=== PATIENT | male | born 1955 | race Two or more races ===

== ENCOUNTER 2023-02-11 08:15 | Day surgery (SDC) | payer MEDICARE, BC ==
[~2023-02-11] VITALS: Ht 190.5 cm; Wt 101.4 kg
[~2023-02-11 08:15] MED LIST: CALCAVITD PO; CHOL10002 PO; CIPR500 PO; CYCLOPHOSPHAMID50 MG PO; FAMO20 PO; FURO20; Flomax0.4 MG PO; HYDACE5 PO; LEVO750 PO; METR500 PO; NYST100000 PO; POTCIT5 PO; PRED20 PO; PROM25 PO; Percocet 5-3251 EACH PO; RAMI2.5 PO; TAMS.4ER PO; UROCIT K PO; XARELTO15 MG PO
[2023-02-11] MEDS ORDERED: PROBIOTIC1 EA14 (09:00)
[2023-02-11] MEDS ORDERED: ZINC15 (09:01)
[2023-02-11 11:11] VITALS: BP 104/64
== END 2023-02-11 11:01 | disposition home or self-care (01) ==
LOC: ORSCSDS 08:15
PROVIDERS: Surgery
PROC: 0DJD8ZZ Inspection of Lower Intestinal Tract, Via Natural or Artificial Opening Endoscopic (ICD-10-PCS; principal; 2023-02-11 10:00)
DX: Z12.11 Encounter for screening for malignant neoplasm of colon (principal); K57.30 Diverticulosis of large intestine without perforation or abscess without bleeding; J45.909 Unspecified asthma, uncomplicated; Z86.718 Personal history of other venous thrombosis and embolism; Z86.711 Personal history of pulmonary embolism
CPT/HCPCS: J2704; J7120

== ENCOUNTER 2023-02-14 15:24 | Inpatient (IN) | payer MEDICARE, BC ==
[~2023-02-14] VITALS: Ht 190.5 cm; Wt 102.6 kg
[2023-02-14] VITALS (8 sets, daily range): BP systolic 96–120; BP diastolic 65–89
[~2023-02-14 15:24] MED LIST changes: +PROBIOTIC1 EA14; +ZINC15
[2023-02-14 16:13] LABS: BASOPHILS ABSOLUTE AUTO 0.06 K/mm3 (0.00-0.23); BASOPHILS PERCENT AUTO 1 % (0-2); EOSINOPHILS ABSOLUTE AUTO 0.02 K/mm3 (0.00-0.68); EOSINOPHILS PERCENT AUTO 0 % (0-6); Hematocrit 44.4 % (37.0-53.0); Hemoglobin 15.3 g/dL (13.5-17.5); IMMATURE GRAN ABSOLUTE AUTO 0.03 K/mm3 (0.00-0.10); IMMATURE GRAN PERCENT AUTO 0 % (0-1); LYMPHOCYTES PERCENT AUTO 16 % (21-46); MONOCYTES ABSOLUTE AUTO 0.56 K/mm3 (0.16-1.47); MONOCYTES PERCENT AUTO 7 % (4-13); Mean Corpuscular HGB 31.7 pg (26.0-34.0); Mean Corpuscular HGB Conc 34.5 g/dL (31.5-36.5); Mean Corpuscular Volume 92 fL (80-100); Mean Platelet Volume 10.3 fL (9.1-12.4); NEUTROPHILS ABSOLUTE AUTO 5.78 K/mm3 (1.96-9.15); NEUTROPHILS PERCENT AUTO 76 % (41-73); Platelet Count 248 K/mm3 (150-400); RDW Coefficient Variation 12.8 % (11.7-14.2); RDW Standard Deviation 43.1 fL (35.1-46.3); Red Blood Cell Count 4.82 M/mm3 (4.30-5.90); White Blood Cell Count 7.65 K/mm3 (4.00-11.30)
[2023-02-14 16:28] LABS: Albumin, Blood 3.5 g/dL (3.4-5.0); Albumin/Globulin Ratio 1.1 (0.8-1.8); Bilirubin, Total 0.6 mg/dL (0.1-1.0); Bun/Creatinine Ratio 12.5 (12.0-20.0); Calcium, Blood 9.1 mg/dL (8.5-10.1); Creatinine, Blood 1.04 mg/dL (0.60-1.20); Globulin, Blood 3.2 g/dL (2.2-4.0); Potassium, Blood 4.3 mmol/L (3.5-5.5); Total Protein, Blood 6.7 g/dL (6.4-8.2)
[2023-02-14 17:19] LABS: Thyroid Stimulating Hormone 1.75 uIU/mL (0.360-4.800)
[2023-02-14 20:09] LABS: Magnesium, Blood 2.2 mg/dL (1.6-2.4)
[2023-02-15] VITALS (28 sets, daily range): BP systolic 98–147; BP diastolic 53–99
--- NOTE | 2023-02-15 00:09 | NUR ---
ASSUMED PT CARE FORM RN IN ED. A&OX4. ABLE TO FOLLOW DIRECTIONS AND ANSWER QUESTIONS APPROPRIATELY. ABLE TO STAND AND TRANSFER TO BED FROM [facility] WITHOUT DIZZIENESS/LIGHTHEADEDNESS. DENIES CHEST PAIN/PRESSURE AT THIS TIME. HR A-FLUTTER IN 110'S. CARDIAZEM GTT AT 10 INFUSING WITHOUT DIFFICULTY. BP STABLE, SEE RECORDDED VITAL SIGNS. DENIES SOB. O2 SATS > 92% ON RA. DENIES NAUSEA. VOIDING IN URINAL WHILE STANDING AT BEDSIDE WITHOUT DIFFICULY, URINE CLEAR AND YELLOW. ORIENTED TO ROOM AND CALL LIGHT. BED IN LOW POSITION.
--- NOTE | 2023-02-15 06:18 | NUR ---
SHIFT SUMMARY: NO COMPLAINTS OF CP DURING THIS SHIFT. CARDIZEM GTT DECREASES TO 5 MG/HR DUE TO HR IN 80'S. REMAINS IN A-FLUTTER. INCREASED TO 130'S WHEN STANDING TO VOID, GRADUALLY DECREASES AFTER RETURNING TO BED. BP'S REMAIN STABLE. CALL LIGHT IN REACH. BED IN LOW POSITION.
--- NOTE | 2023-02-15 09:59 | NUR ---
ASSUMPTION OF CARE THIS RN ASSUMED CARE AT APPROX 0715. PT IS AOX4. PLEASANT, COOPERATIVE WITH CARE. RECEPTIVE TO EDUCATION AND ASKS FREQUENT QUESTIONS REGARDING PLAN OF CARE. VSS. BP STABLE. DENIES CHEST PAIN AND PRESSURE. TELEMETRY SHOWING AFLUTTER RHYTHM. RATE DECREASE FROM 130's TO 80's-90's. CARDIZEM GTT TITRATED DOWN FROM 10 TO 5 AT 0900, RATE SUSTAINING. PO METOPROLOL ADMINISTERED PER EMAR. ECHOCARDIOGRAM COMPLETED THIS MORNING. CURRENTLY ON ROOM AIR, SATS >90%. VOIDING. STANDING TO USE URINAL AT BEDSIDE. STAND BY ASSIST IN ROOM FOR CORD AND DEVICE MANAGEMENT. CALL LIGHT IN REACH.
--- NOTE | 2023-02-15 11:08 | NUR ---
UPDATE CARDIZEM STOPPED AT APPROX 1030. HEART RATE CONTINUES TO TREND 80's-90's WITH OCCASSIONAL INCREASES TO 120's-130's. NONSUSTAINING. VS REMAIN STABLE. CURRENT HEART RATE REMAINS IN THE 80's.
--- NOTE | 2023-02-15 12:04 | NUR ---
UPDATE WITH ACTIVITY, PT's HR INCREASED TO 130's. CURRENTLY IN THE 120's. WILL CONTINUE TO MONITOR FOR SUSTAINING INCREASED HEART RATE >100 PRIOR TO CONTACTING MD IN REGARDS TO RESTARTING CARDIZEM GTT.
--- NOTE | 2023-02-15 13:23 | NUR ---
UPDATE HR TRENDING UP, 110's-120's. CARDIZEM GTT STOPPED AT 1030. THIS RN CONTACTED MD SUN WITH MD GEOVANNI TO PUT IN NEW ORDERS FOR RATE CONTROL.
--- NOTE | 2023-02-15 14:24 | NUR ---
IV METOPROLOL PUSH ADMINISTERED PER EMAR. HEART RATE REMAINS 120's-130's. MD SUN NOTIFIED, RCVD ORDER FOR ONE TIME DOSE OF PO METOPROLOL. WILL ADMINISTER PER EMAR.
--- NOTE | 2023-02-15 16:18 | NUR ---
HEART RATE SUSTAINING IN 130's, DESPITE MULTIPLE DOSES OF LOPRESSOR (BOTH PO AND IV). MD SUN NOTIFIED. RECEIVED ORDER TO RESTART CARDIZEM GTT.
--- NOTE | 2023-02-15 17:38 | NUR ---
END OF SHIFT NOTE NO ACUTE CHANGES SINCE PREVIOUS NOTES. PT REMAINS AOX4. VS REMAIN STABLE. BP STABLE. CARDIZEM GTT STARTED AGAIN PER EMAR, CURRENTLY RUNNING AT 10, METOPROLOL UNABLE TO PROVIDE RATE CONTROL. RATE REMAINS 120's-130's AT THIS TIME. PT MOSTLY ASYMPTOMATIC WITH INCREASED RATE. NO REPORT OF CHEST PAIN OR PRESSURE. PT REPORTS FEELING "FLUSHED IN THE FACE" AT TIMES. REMAINS ON ROOM AIR, SATS >90%. MOSTLY INDEPENDENT IN ROOM, CALLS APPROPRIATELY FOR STAND BY ASSIST NEEDED. VOIDING. CALL LIGHT IN REACH. WILL REPORT TO ONCOMING RN.
--- NOTE | 2023-02-15 20:39 | NUR ---
ASSUMED PT CARE FORM RN ON DAYSHI. A&OX4. DENIES CHEST PAIN/PRESSURE WITH HR A-FLUTTER IN 80'S ON CARDIZEM AT 10MG/HR. BP STABLE, SEE RECORDED VS. O2 SATS > 92% ON RA. DENIES NAUSEA OR DIZZIENESS. WILL MONITOR. CALL LIGHT IN REACH. BED IN LOW POSITION.
[2023-02-16] VITALS (35 sets, daily range): BP systolic 96–132; BP diastolic 50–118
[2023-02-16 04:18] LABS: Bun/Creatinine Ratio 10.2 (12.0-20.0); Calcium, Blood 8.8 mg/dL (8.5-10.1); Creatinine, Blood 1.18 mg/dL (0.60-1.20); Magnesium, Blood 2.4 mg/dL (1.6-2.4); Potassium, Blood 3.8 mmol/L (3.5-5.5)
--- NOTE | 2023-02-16 05:35 | NUR ---
SHIFT SUMMARY: ATTEMPTING TO TITRATE CARDIZEM GTT DOWN TO 5 MG/HR WITH POOR RESULT. HEART RATE UP TO 130'S, TITRATED CARDIZEM BACK UP TO 10 MG/HR, HEART RATE NOW 90'S. HEART RATE REMAINS A-FLUTTER. PT AMBULATED ONCE AROUND HALLWAYS IN UNIT, HR 130. REPORTS SLIGHT DIZZIENESS ON RETURNING TO ROOM. NO ACUTE CHANGES NOTED DURING THIS SHIFT. CALL LIGHT IN REACH. BED IN LOW POSITION.
--- NOTE | 2023-02-16 10:20 | NUR ---
MORNING NOTE THIS RN ASSUMED CARE AT APPROX 0715. PT AOX4. PLEASANT. COOPERATIVE WITH PLAN OF CARE, ASKING FREQUENT QUESTIONS NEEDED TO GAIN BETTER UNDERSTANDING OF CARE INTERVENTIONS. VSS. BP STABLE. PT REPORTS NO CHEST PAIN OR PRESSURE. REPORTS AN OCCASSIONAL "FLUTTERING IN CHEST" AND SOME MILD LIGHTHEADEDNESS WITH ACTIVITY. TELEMETRY SHOWING AFLUTTER 100's-130's. CARDIOLOGY CONSULTED THIS MORNING FOR RATE CONTROL METOPROLOL AND CARDIZEM GTT INEFFECTIVE. MD RICHARDSON TO BEDSIDE THIS MORNING TO DISCUSS NEW PLAN OF CARE. PLAN FOR KALEE/CARDIOVERSION TOMORROW MORNING, NPO AT MIDNIGHT. PT AGREEABLE WITH PLAN FOR PROCEDURE, DISCUSSED WITH IN DEPTH, CONSENT WITNESSED, FORM COMPLETED AND IN CHART. RECEIVED ORDER TO TITRATE OFF OF CARDIZEM GTT AND START AMIODARONE GTT. PO AMIODARONE FOLLOWING PROCEDURE ORDERED PER MD RICHARDSON INSTRUCTION, SEE EMAR. PER EMAR, PT TITRATED OFF OF CARDIZEM GTT THIS MORNING, AMIODARONE GTT NOW INFUSING. PT INDEPENDENT AT BASELINE, IS A STAND BY ASSIST IN ROOM FOR DEVICE/CORD/LINE MANAGEMENT. VOIDING. CALL LIGHT IN REACH.
--- NOTE | 2023-02-16 11:17 | NUR ---
UPDATE AMIODARONE GTT STARTED PER EMAR THIS MORNING. PT TOLERATING GTT. BP STABLE. TELEMETRY CONTINUING TO SHOW A FLUTTER. RATE TRENDING DOWN, 60's-80's, WITH EPISODES OF INCREASES >100. NO REPORT OF CHEST PAIN OR PRESSURE. LUNG SOUNDS REMAIN WNL UPON AUSCULTATION. THIS RN INSERTED SECOND IV SITE FOR ADDITIONAL ACCESS FOR PLANNED PROCEDURE TOMORROW MORNING. CALL LIGHT IN REACH.
--- NOTE | 2023-02-16 15:10 | NUR ---
UPDATE VS REMAIN STABLE WITH AMIODARONE GTT. BP SOFT, SBP 100's-110's. CONTINUES TO REPORT NO CHEST PAIN OR PRESSURE. TELEMETRY CONTINUING TO SHOW AFLUTTER. WHILE AMBULATING TO THE RESTROOM THIS AFTERNOON, RATE INCREASED FROM 60's-80's TO 120's-130's, SUSTAINING AT REST. IV W/ AMIODARONE GTT WNL. PT EXPERIENCING EPISODES OF INCREASED ANXIETY RELATED TO HOSPITAL STAY, MEDICAL PROCEDURE, AND MEDICATIONS. ASKING FREQUENT QUESTIONS. THIS RN FREQUENTLY PROVIDING THERAPEUTIC LISTENING, MULTIPLE FORMS OF EDUCATION. PT EXPRESSING RELIEF AFTER DISCUSSING WITH STAFF. WILL CONTINUE TO MONITOR. CALL LIGHT IN REACH.
--- NOTE | 2023-02-16 17:09 | NUR ---
SHIFT NOTE NO ACUTE CHANGES SINCE PREVIOUS NOTES. PT REMAINS AOX4. EXPERIENCED EPISODES OF INCREASED ANXIETY REGARDING PLAN OF CARE MANAGING WITH THERAPEUTIC DISCUSSION AND PROVIDED PRINTED EDUCATION MATERIAL, PT REPORTING RELIEF. VS REMAIN STABLE. BP STABLE, SBP 100's-110's. TELEMETRY CONTINUING TO SHOW AFLUTTER. RATE REMAINS 120's-130's WITH INCREASE TO 140's WITH ACTIVITY. AMIODARONE GTT INFUSING. PLAN FOR KALEE/CARDIOVERSION TOMORROW, NPO AT MIDNIGHT. REMAINS ON ROOM AIR, SATS >90%. INDEPENDENT W/ ADL's, STAND BY ASSIST FOR CORD/DEVICE MANAGEMENT NEEDED. VOIDING. IS CURRENTLY EATING DINNER. CALL LIGHT IN REACH. WILL REPORT TO ONCOMING RN.
--- NOTE | 2023-02-16 22:50 | NUR ---
AOS: PATIENT INFUSING AMIO, AT THE .5 DOSING, PLAN FOR KALEE WITH CARDIOVERSION IN THE AM. NPO AT MIDNIGHT. VSS MINUS HEARTRATE, HR IN THE 130'S EVEN WITH METOPROLOL ON BOARD. DENIES CHEST PAIN PRESSURE OR SOB. A/O X 4. IMPROVED ABILITY TO TOLERATE WALKING, UP TO BATHROOM WITH MINIMAL ASSISTANCE, NO CONCERNS AT THIS TIME.
[2023-02-17] VITALS (43 sets, daily range): BP systolic 82–136; BP diastolic 50–107
[2023-02-17 04:21] LABS: Bun/Creatinine Ratio 12.3 (12.0-20.0); Calcium, Blood 8.6 mg/dL (8.5-10.1); Creatinine, Blood 1.06 mg/dL (0.60-1.20); Potassium, Blood 3.8 mmol/L (3.5-5.5)
--- NOTE | 2023-02-17 08:09 | NUR ---
label paster called, medicated patient and vs completed. Pt to cath lab radiological technologist for cardioversion.
--- NOTE | 2023-02-17 09:30 | NUR ---
PT AWAKE AND CONVERSING APPOPRIATELY; DENIES PAIN POST. PT REMAINS IN SR WITH PAC'S 60'S, VSS.
--- NOTE | 2023-02-17 09:41 | NUR ---
REPORT CALLED TO AMAURI REIS; ALL QUESTIONS ANSWERED. PT RETURNED TO PCU 3 VIA W/C, CONDITION STABLE.
[2023-02-17] MEDS ORDERED: METO25 PO (11:46)
[2023-02-17] MEDS ORDERED: XARELTO20 MG PO (11:48)
[2023-02-17] MEDS ORDERED: AMIODARONE HCL400 M2 PO (11:49)
[2023-02-17] MEDS ORDERED: Amiodarone HCl200 MG PO (11:50)
--- NOTE | 2023-02-17 18:46 | NUR ---
Discharge summary Pt back from pathology laboratory director this am at approx 0930. Pt alert, oriented, calm and cooperative with care. Pt resting in bed, up in room sba. VSS. Tele after cardioversion sb/sr with PACs. BP stable. Pt denies pain, chest pain/pressure, sob, nausea, dizziness was "a whole heck of a lot better." Other vss. No other acute changes noted. Educated pt on discharge instructions, follow up appointment and prescriptions. Pt hesitant when trying to explain plan after discharge. Check list provided to include stopping at pharmacy on the way home, taking evening medications excluding xarelto (should start 02/18), calling to schedule a follow up appointment with pcp and following up with cardiology office if he didnt hear from them. Pt thankful for reminders in on place. Pt left via wheelchair at approx 1820.
== END 2023-02-17 18:20 | disposition home or self-care (01) | DRG 310 ==
LOC: ER 15:24 → PCU 15:25
PROVIDERS: Emergency Medicine; Family Medicine; ADMIT Student in an Organized Health Care Education/Training Program
PROC: B24BZZZ Ultrasonography of Heart with Aorta (ICD-10-PCS; 2023-02-15)
PROC: 5A2204Z Restoration of Cardiac Rhythm, Single (ICD-10-PCS; principal; 2023-02-17)
PROC: B24BZZ4 Ultrasonography of Heart with Aorta, Transesophageal (ICD-10-PCS; 2023-02-17)
DX: I48.92 Unspecified atrial flutter (principal); Z86.711 Personal history of pulmonary embolism; Z86.718 Personal history of other venous thrombosis and embolism; I10 Essential (primary) hypertension; Z66 Do not resuscitate; Z87.441 Personal history of nephrotic syndrome
CPT/HCPCS: 36415; 71045; 80048; 80053; 83735; 84439; 84443; 84484; 85025; 92960; 93005; 93010; 93306; 93312; 93325; 96361; 96365; 96366; 96375; 96376; 99285-25; A9270; G0378; J0282; J1100; J2405; J2704; J3010; J3475; J7030; J7040; J7060